=== PATIENT | female | born 1975 | race Caucasian/White ===

== ENCOUNTER 2017-10-08 02:59 | Emergency (ER) | payer MEDICAID ==
[2017-10-08 03:45] LABS: BASOPHILS 0.2 % (0-2); EOSINOPHILS 0.8 % (0-7); HEMATOCRIT 38.9 % (36.0-48.0); HEMOGLOBIN 12.6 g/dL (12-16); IMMATURE GRANULOCYTES 0.3 % (0-5); LYMPHOCYTES 14.8 % (15-50); MCH 29.3 pg (26.0-34.0); MCHC 32.4 g/dL (31.0-37.0); MCV 90.5 fL (80.0-100.0); MEAN PLATELET VOLUME 10.3 fL (7.4-10.4); MONOCYTES 5.7 % (2-11); NEUTROPHILS 78.2 % (40-80); PLATELET COUNT 402 10x3/uL (130-400); RDW 14.7 % (11.5-14.5); WBC 14.1 10x3/uL (4.8-10.8)
[2017-10-08 03:49] LABS: APPEARANCE HAZY (CLEAR); BILIRUBIN NEGATIVE (NEGATIVE); COLOR YELLOW (YELLOW); GLUCOSE NEGATIVE (NEGATIVE); KETONE NEGATIVE (NEGATIVE); NITRITE NEGATIVE (NEGATIVE); PROTEIN TRACE mg/dL (NEGATIVE); RED CELLS - URINE 0-5 /hpf (0-5); SPECIFIC GRAVITY 1.015 (1.005-1.020); UROBILINOGEN NORMAL (NORMAL)
[2017-10-08 03:50] LABS: BACTERIA FEW /hpf (NONE SEEN); EPITHELIAL CELLS RARE /hpf (0-5)
[2017-10-08 03:59] LABS: HCG SERUM NEGATIVE (NEGATIVE)
[2017-10-08 04:03] LABS: ALBUMIN 3.3 g/dL (3.4-5.0); ALKALINE PHOSPHATASE 73 U/L (46-116); ALT (SGPT) 15 U/L (10-68); AMYLASE - SERUM 54 U/L (25-115); BILIRUBIN - TOTAL 0.24 mg/dL (0.2-1.3); CALC OSMOLALITY 279 mosm/kg (275-300); CARBON DIOXIDE 31.3 mmol/L (21.0-32.0); CHLORIDE - SERUM 101 mmol/L (98-107); CREATININE - SERUM 0.7 mg/dL (0.6-1.3); GLUCOSE 114 mg/dL (74-106); LIPASE 74 U/L (73-393); POTASSIUM - SERUM 4.2 mmol/L (3.5-5.1); PROTEIN - SERUM 7.1 g/dL (6.4-8.2); SODIUM 139 mmol/L (136-145); UREA NITROGEN 14 mg/dL (7-18); eGFR NON AFRICAN AMERICAN > 90 mL/min (90-120)
[2017-10-08 04:26] LABS: UDS - AMPHET POSITIVE QUAL (NEGATIVE); UDS - BARB NEGATIVE QUAL (NEGATIVE); UDS - BENZO NEGATIVE QUAL (NEGATIVE); UDS - COCAINE NEGATIVE QUAL (NEGATIVE); UDS - OPIATE NEGATIVE QUAL (NEGATIVE); UDS - PCP NEGATIVE QUAL (NEGATIVE); UDS - THC NEGATIVE QUAL (NEGATIVE)
== END 2017-10-08 05:06 | disposition home or self-care (01) ==
LOC: D.ER 02:59
PROVIDERS: Emergency Medicine
DX: N39.0 Urinary tract infection, site not specified (principal); N73.0 Acute parametritis and pelvic cellulitis; F17.200 Nicotine dependence, unspecified, uncomplicated

== ENCOUNTER 2017-12-24 04:17 | Emergency (ER) | payer MEDICAID ==
[~2017-12-24] VITALS: Ht 170.2 cm; Wt 61.4 kg
[2017-12-24 04:25] VITALS: Ht 170.2 cm; Wt 61.4 kg
[2017-12-24 05:11] LABS: UDS - AMPHET POSITIVE QUAL (NEGATIVE); UDS - BARB NEGATIVE QUAL (NEGATIVE); UDS - BENZO NEGATIVE QUAL (NEGATIVE); UDS - COCAINE NEGATIVE QUAL (NEGATIVE); UDS - OPIATE NEGATIVE QUAL (NEGATIVE); UDS - PCP NEGATIVE QUAL (NEGATIVE); UDS - THC POSITIVE QUAL (NEGATIVE)
[2017-12-24 05:18] LABS: BASOPHILS 0.3 % (0-2); EOSINOPHILS 1.1 % (0-7); HEMATOCRIT 38.2 % (36.0-48.0); HEMOGLOBIN 12.5 g/dL (12-16); IMMATURE GRANULOCYTES 0.3 % (0-5); MCH 29.2 pg (26.0-34.0); MCHC 32.7 g/dL (31.0-37.0); MCV 89.3 fL (80.0-100.0); MEAN PLATELET VOLUME 10.2 fL (7.4-10.4); MONOCYTES 7.7 % (2-11); NEUTROPHILS 72.6 % (40-80); PLATELET COUNT 384 10x3/uL (130-400); RBC 4.28 10x6/uL (4.00-5.40); RDW 16.1 % (11.5-14.5); WBC 15.2 10x3/uL (4.8-10.8)
[2017-12-24 05:19] LABS: ALBUMIN 3.4 g/dL (3.4-5.0); ALKALINE PHOSPHATASE 87 U/L (46-116); ALT (SGPT) 22 U/L (10-68); AMYLASE - SERUM 60 U/L (25-115); APPEARANCE CLOUDY (CLEAR); BILIRUBIN - TOTAL 0.28 mg/dL (0.2-1.3); CALC OSMOLALITY 279 mosm/kg (275-300); CALCIUM 9.1 mg/dL (8.5-10.1); CARBON DIOXIDE 30.4 mmol/L (21.0-32.0); CHLORIDE - SERUM 104 mmol/L (98-107); COLOR YELLOW (YELLOW); CREATININE - SERUM 0.8 mg/dL (0.6-1.3); GLUCOSE 93 mg/dL (74-106); LIPASE 81 U/L (73-393); POTASSIUM - SERUM 4.1 mmol/L (3.5-5.1); PROTEIN - SERUM 7.2 g/dL (6.4-8.2); SODIUM 139 mmol/L (136-145); SPECIFIC GRAVITY 1.015 (1.005-1.020); UREA NITROGEN 18 mg/dL (7-18); eGFR NON AFRICAN AMERICAN 83 mL/min (90-120)
[2017-12-24 05:20] LABS: BACTERIA MODERATE /hpf (NONE SEEN); BILIRUBIN NEGATIVE (NEGATIVE); EPITHELIAL CELLS 0-5 /hpf (0-5); GLUCOSE NEGATIVE (NEGATIVE); KETONE NEGATIVE (NEGATIVE); NITRITE NEGATIVE (NEGATIVE); PROTEIN 1+ mg/dL (NEGATIVE); UROBILINOGEN NORMAL (NORMAL); WHITE CELLS - URINE >50 /hpf (0-5)
[2017-12-24 05:22] LABS: HCG SERUM NEGATIVE (NEGATIVE)
[2017-12-24] MEDS ORDERED: ZOFRAN ODT4 MG/UDTAB PO (05:37)
[2017-12-24] MEDS ORDERED: KEFLEX500 MG PO (05:37)
[2017-12-24] MEDS ORDERED: MACROBID100 MG PO (05:37)
[2017-12-24 06:29] VITALS: BP 132/78
== END 2017-12-24 06:29 | disposition home or self-care (01) ==
LOC: D.ER 04:17 → EDBD 04:17 → D.ER 06:29
PROVIDERS: Family Medicine
DX: N39.0 Urinary tract infection, site not specified (principal); F15.10 Other stimulant abuse, uncomplicated; R11.2 Nausea with vomiting, unspecified; R30.0 Dysuria

== ENCOUNTER 2018-08-15 22:20 | Emergency (ER) | payer MEDICAID ==
[~2018-08-15] VITALS: Ht 170.2 cm; Wt 54.5 kg
[~2018-08-15 22:20] MED LIST: KEFLEX500 MG PO; MACROBID100 MG PO; ZOFRAN ODT4 MG/UDTAB PO
[2018-08-15 22:25] VITALS: Ht 170.2 cm; Wt 54.5 kg
[2018-08-15 22:54] LABS: APPEARANCE CLEAR (CLEAR); COLOR YELLOW (YELLOW); NITRITE NEGATIVE (NEGATIVE); SPECIFIC GRAVITY 1.025 (1.005-1.020)
[2018-08-15 22:55] LABS: BASOPHILS 0.3 % (0-2); HEMATOCRIT 39.3 % (36.0-48.0); HEMOGLOBIN 12.8 g/dL (12-16); IMMATURE GRANULOCYTES 0.3 % (0-5); LYMPHOCYTES 15.4 % (15-50); MCH 28.6 pg (26.0-34.0); MCHC 32.6 g/dL (31.0-37.0); MCV 87.9 fL (80.0-100.0); MONOCYTES 6.1 % (2-11); NEUTROPHILS 76.9 % (40-80); RBC 4.47 10x6/uL (4.00-5.40); RDW 13.7 % (11.5-14.5); WBC 14.3 10x3/uL (4.8-10.8)
[2018-08-15 22:55] LABS: BILIRUBIN NEGATIVE (NEGATIVE); GLUCOSE NEGATIVE (NEGATIVE); KETONE NEGATIVE (NEGATIVE); PROTEIN TRACE mg/dL (NEGATIVE); UROBILINOGEN NORMAL (NORMAL)
[2018-08-15 22:56] LABS: BACTERIA FEW /hpf (NONE SEEN); EPITHELIAL CELLS 0-5 /hpf (0-5); RED CELLS - URINE 0-5 /hpf (0-5); WHITE CELLS - URINE 0-5 /hpf (0-5)
[2018-08-15 23:01] LABS: HCG URINE NEGATIVE (NEGATIVE)
[2018-08-15 23:02] LABS: PLATELET COUNT 531 10x3/uL (130-400)
[2018-08-15 23:03] LABS: UDS - AMPHET POSITIVE QUAL (NEGATIVE); UDS - BARB NEGATIVE QUAL (NEGATIVE); UDS - BENZO NEGATIVE QUAL (NEGATIVE); UDS - COCAINE NEGATIVE QUAL (NEGATIVE); UDS - OPIATE NEGATIVE QUAL (NEGATIVE); UDS - PCP NEGATIVE QUAL (NEGATIVE); UDS - THC NEGATIVE QUAL (NEGATIVE)
[2018-08-15 23:09] LABS: ALBUMIN 3.3 g/dL (3.4-5.0); ALKALINE PHOSPHATASE 104 U/L (46-116); ALT (SGPT) 21 U/L (10-68); BILIRUBIN - TOTAL 0.05 mg/dL (0.2-1.3); CALC OSMOLALITY 279 mosm/kg (275-300); CALCIUM 9.1 mg/dL (8.5-10.1); CARBON DIOXIDE 34.4 mmol/L (21.0-32.0); CHLORIDE - SERUM 100 mmol/L (98-107); CREATININE - SERUM 0.6 mg/dL (0.6-1.3); GLUCOSE 111 mg/dL (74-106); POTASSIUM - SERUM 3.7 mmol/L (3.5-5.1); PROTEIN - SERUM 7.6 g/dL (6.4-8.2); SODIUM 140 mmol/L (136-145); UREA NITROGEN 13 mg/dL (7-18); eGFR NON AFRICAN AMERICAN > 90 mL/min (90-120)
[2018-08-15 23:13] LABS: AMYLASE - SERUM 82 U/L (25-115); LIPASE 147 U/L (73-393)
[2018-08-16] MEDS ORDERED: PROTONIX40 MG PO (01:09)
[2018-08-16 02:18] LABS: CKMB 1.2 U/L (0.0-3.6); CREATINE KINASE 32 UL (21-215); TROPONIN-I 0.046 ng/mL (0.000-0.060)
[2018-08-16 04:02] VITALS: BP 136/78
== END 2018-08-16 04:03 | disposition home or self-care (01) ==
LOC: D.ER 22:20
PROVIDERS: Family Medicine
DX: R10.84 Generalized abdominal pain (principal); K29.70 Gastritis, unspecified, without bleeding; I10 Essential (primary) hypertension; F19.10 Other psychoactive substance abuse, uncomplicated; R11.10 Vomiting, unspecified

== ENCOUNTER 2019-03-09 19:48 | Emergency (ER) | payer MEDICAID ==
[~2019-03-09] VITALS: Ht 170.2 cm; Wt 56.8 kg
[~2019-03-09 19:48] MED LIST changes: +PROTONIX40 MG PO
[2019-03-09 19:52] VITALS: Ht 170.2 cm; Wt 56.8 kg
[2019-03-09 20:27] LABS: BASOPHILS 0.3 % (0-2); EOSINOPHILS 1.1 % (0-7); HEMATOCRIT 34.2 % (36.0-48.0); HEMOGLOBIN 11.1 g/dL (12-16); IMMATURE GRANULOCYTES 0.3 % (0-5); LYMPHOCYTES 14.3 % (15-50); MCH 24.8 pg (26.0-34.0); MCHC 32.5 g/dL (31.0-37.0); MCV 76.3 fL (80.0-100.0); MONOCYTES 6.4 % (2-11); NEUTROPHILS 77.6 % (40-80); PLATELET COUNT 509 10x3/uL (130-400); RBC 4.48 10x6/uL (4.00-5.40); RDW 16.2 % (11.5-14.5); WBC 15.1 10x3/uL (4.8-10.8)
[2019-03-09 20:37] LABS: ALBUMIN 2.9 g/dL (3.4-5.0); ALKALINE PHOSPHATASE 99 U/L (46-116); ALT (SGPT) 20 U/L (10-68); AMYLASE - SERUM 47 U/L (25-115); BILIRUBIN - TOTAL 0.27 mg/dL (0.2-1.3); CALC OSMOLALITY 279 mosm/kg (275-300); CALCIUM 8.5 mg/dL (8.5-10.1); CHLORIDE - SERUM 101 mmol/L (98-107); CREATININE - SERUM 0.4 mg/dL (0.6-1.3); GLUCOSE 128 mg/dL (74-106); LIPASE 106 U/L (73-393); PROTEIN - SERUM 6.4 g/dL (6.4-8.2); SODIUM 139 mmol/L (136-145); TROPONIN-I < 0.017 ng/mL (0.000-0.060); UREA NITROGEN 12 mg/dL (7-18); eGFR NON AFRICAN AMERICAN > 90 mL/min (90-120)
[2019-03-09 20:39] LABS: POTASSIUM - SERUM 2.8 mmol/L (3.5-5.1)
[2019-03-09 21:17] LABS: APPEARANCE HAZY (CLEAR); BILIRUBIN NEGATIVE (NEGATIVE); COLOR YELLOW (YELLOW); GLUCOSE NEGATIVE (NEGATIVE); KETONE NEGATIVE (NEGATIVE); NITRITE NEGATIVE (NEGATIVE); PROTEIN TRACE mg/dL (NEGATIVE); SPECIFIC GRAVITY 1.015 (1.005-1.020); UROBILINOGEN NORMAL (NORMAL)
[2019-03-09 21:19] LABS: EPITHELIAL CELLS 0-5 /hpf (0-5); RED CELLS - URINE 0-5 /hpf (0-5)
[2019-03-09 21:20] LABS: BACTERIA FEW /hpf (NEGATIVE); HCG URINE NEGATIVE (NEGATIVE)
[2019-03-10] MEDS ORDERED: ULTRAM50 MG PO (01:09)
[2019-03-10] MEDS ORDERED: OMNICEF300 MG PO (01:09)
[2019-03-10] MEDS ORDERED: ZOFRAN ODT4 MG/UDTAB PO (01:13)
[2019-03-10 01:41] VITALS: BP 138/84
== END 2019-03-10 01:40 | disposition home or self-care (01) ==
LOC: D.ER 19:48
PROVIDERS: Family Medicine
DX: N39.0 Urinary tract infection, site not specified (principal); E87.6 Hypokalemia; M94.0 Chondrocostal junction syndrome [Tietze]

== ENCOUNTER 2019-03-10 03:40 | Emergency (ER) | payer MEDICAID ==
[~2019-03-10] VITALS: Ht 170.2 cm; Wt 59.1 kg
[~2019-03-10 03:40] MED LIST changes: +OMNICEF300 MG PO; +ULTRAM50 MG PO
[2019-03-10 03:46] VITALS: Ht 170.2 cm; Wt 59.1 kg
[2019-03-10 05:46] VITALS: BP 150/72
== END 2019-03-10 05:22 | disposition home or self-care (01) ==
LOC: D.ER 03:40
DX: N39.0 Urinary tract infection, site not specified (principal)

== ENCOUNTER 2019-04-07 17:32 | Emergency (ER) | payer MEDICAID ==
[~2019-04-07] VITALS: Ht 175.3 cm; Wt 59.1 kg
[2019-04-07 17:41] VITALS: Ht 175.3 cm; Wt 59.1 kg
[2019-04-07 19:33] LABS: BASOPHILS 0.1 % (0-2); EOSINOPHILS 0.1 % (0-7); HEMATOCRIT 34.5 % (36.0-48.0); HEMOGLOBIN 10.6 g/dL (12-16); IMMATURE GRANULOCYTES 0.4 % (0-5); LYMPHOCYTES 8.4 % (15-50); MCH 24.8 pg (26.0-34.0); MCHC 30.7 g/dL (31.0-37.0); MCV 80.6 fL (80.0-100.0); MEAN PLATELET VOLUME 9.6 fL (7.4-10.4); PLATELET COUNT 548 10x3/uL (130-400); RBC 4.28 10x6/uL (4.00-5.40); RDW 18.9 % (11.5-14.5); WBC 13.8 10x3/uL (4.8-10.8)
[2019-04-07 20:05] LABS: ALBUMIN 2.6 g/dL (3.4-5.0); ALKALINE PHOSPHATASE 110 U/L (46-116); ALT (SGPT) 17 U/L (10-68); AMYLASE - SERUM 52 U/L (25-115); BILIRUBIN - TOTAL 0.27 mg/dL (0.2-1.3); CALC OSMOLALITY 272 mosm/kg (275-300); CALCIUM 8.6 mg/dL (8.5-10.1); CARBON DIOXIDE 29.8 mmol/L (21.0-32.0); CHLORIDE - SERUM 98 mmol/L (98-107); CKMB 1.1 U/L (0.0-3.6); CREATINE KINASE 31 UL (21-215); CREATININE - SERUM 0.6 mg/dL (0.6-1.3); GLUCOSE 108 mg/dL (74-106); LIPASE 64 U/L (73-393); MAGNESIUM - SERUM 1.4 mg/dL (1.8-2.4); PROTEIN - SERUM 6.6 g/dL (6.4-8.2); SODIUM 136 mmol/L (136-145); UREA NITROGEN 12 mg/dL (7-18); eGFR NON AFRICAN AMERICAN > 90 mL/min (90-120)
[2019-04-07 20:38] LABS: POTASSIUM - SERUM 2.8 mmol/L (3.5-5.1); TROPONIN-I < 0.017 ng/mL (0.000-0.060)
[2019-04-07 20:59] LABS: UDS - AMPHET POSITIVE QUAL (NEGATIVE); UDS - BARB NEGATIVE QUAL (NEGATIVE); UDS - BENZO NEGATIVE QUAL (NEGATIVE); UDS - COCAINE NEGATIVE QUAL (NEGATIVE); UDS - OPIATE NEGATIVE QUAL (NEGATIVE); UDS - PCP NEGATIVE QUAL (NEGATIVE); UDS - THC POSITIVE QUAL (NEGATIVE)
[2019-04-07 21:04] LABS: APPEARANCE CLEAR (CLEAR); BILIRUBIN NEGATIVE (NEGATIVE); COLOR STRAW (YELLOW); GLUCOSE NEGATIVE (NEGATIVE); KETONE NEGATIVE (NEGATIVE); NITRITE NEGATIVE (NEGATIVE); PROTEIN NEGATIVE (NEGATIVE); SPECIFIC GRAVITY 1.015 (1.005-1.020); UROBILINOGEN NORMAL (NORMAL)
--- NOTE | 2019-04-07 23:31 | NUR ---
DR ANGELA NOTIFIED AND REVIEWED PATIENT'S BEHAVIOR AND ASSESSMENT RESULTS. PT IS A LOW RISK PER DR ANGELA. PATIENT REFUSED RESOURCE INFORMATION RELATING SHE IS NOT SUICIDAL SHE JUST WANTS HELP WITH HER PAIN. NO FURTHER ORDERS AT THIS TIME.
[2019-04-07 23:35] VITALS: BP 147/90
== END 2019-04-07 23:35 | disposition home or self-care (01) ==
LOC: D.ER 17:32
PROVIDERS: Family Medicine
DX: R10.9 Unspecified abdominal pain (principal); I47.1 Supraventricular tachycardia; F19.10 Other psychoactive substance abuse, uncomplicated

== ENCOUNTER 2019-05-05 02:56 | Inpatient (IN) | payer MEDICAID ==
[~2019-05-05] VITALS: Ht 175.3 cm; Wt 40.8 kg
[2019-05-05 03:13] LABS: BASOPHILS 0.1 % (0-2); EOSINOPHILS 0 % (0-7); HEMATOCRIT 37.9 % (36.0-48.0); HEMOGLOBIN 11.9 g/dL (12-16); IMMATURE GRANULOCYTES 0.6 % (0-5); LYMPHOCYTES 4.2 % (15-50); MCH 25.9 pg (26.0-34.0); MCHC 31.4 g/dL (31.0-37.0); MCV 82.6 fL (80.0-100.0); MEAN PLATELET VOLUME 10.1 fL (7.4-10.4); MONOCYTES 2.2 % (2-11); NEUTROPHILS 92.9 % (40-80); PLATELET COUNT 487 10x3/uL (130-400); RBC 4.59 10x6/uL (4.00-5.40); RDW 19.1 % (11.5-14.5); WBC 17.9 10x3/uL (4.8-10.8)
[2019-05-05 03:24] LABS: CALC OSMOLALITY 288 mosm/kg (275-300); CARBON DIOXIDE 30.2 mmol/L (21.0-32.0); CHLORIDE - SERUM 99 mmol/L (98-107); CREATININE - SERUM 0.8 mg/dL (0.6-1.3); GLUCOSE 148 mg/dL (74-106); POTASSIUM - SERUM 3.6 mmol/L (3.5-5.1); SODIUM 140 mmol/L (136-145); UREA NITROGEN 31 mg/dL (7-18); eGFR NON AFRICAN AMERICAN 82 mL/min (90-120)
[2019-05-05 03:34] LABS: APTT 30.2 SECONDS (22.8-39.4); INR 1.5 (0.85-1.17); PROTIME 17.6 SECONDS (11.6-15.0)
[2019-05-05 03:47] LABS: ALBUMIN 2.8 g/dL (3.4-5.0); ALKALINE PHOSPHATASE 128 U/L (46-116); ALT (SGPT) 37 U/L (10-68); AMYLASE - SERUM 57 U/L (25-115); BILIRUBIN - TOTAL 0.38 mg/dL (0.2-1.3); LIPASE 69 U/L (73-393); PROTEIN - SERUM 7.1 g/dL (6.4-8.2)
[2019-05-05 03:52] LABS: TROPONIN-I 0.105 ng/mL (0.000-0.060)
[2019-05-05 04:04] LABS: APPEARANCE CLEAR (CLEAR); BILIRUBIN NEGATIVE (NEGATIVE); COLOR YELLOW (YELLOW); GLUCOSE NEGATIVE (NEGATIVE); KETONE NEGATIVE (NEGATIVE); NITRITE NEGATIVE (NEGATIVE); PROTEIN 1+ mg/dL (NEGATIVE); SPECIFIC GRAVITY 1.025 (1.005-1.020); UROBILINOGEN NORMAL (NORMAL)
[2019-05-05 04:10] LABS: BACTERIA FEW /hpf (NEGATIVE); EPITHELIAL CELLS 0-5 /hpf (0-5); MUCUS >1+ /lpf (NONE SEEN); RED CELLS - URINE 0-5 /hpf (0-5); WHITE CELLS - URINE 0-5 /hpf (NEGATIVE)
[2019-05-05 06:02] VITALS: BMI 13.3
--- NOTE | 2019-05-05 06:12 | NUR ---
ADMISION VITAL SIGNS: 02 98, BP 109/85, HR 60, RR 12, TEMP 97.7.
--- NOTE | 2019-05-05 06:15 | NUR ---
RECEIVED PATIENT TO ROOM 2112 VIA STRETCHER. PATIENT IS GROSSLY EMACIATED AND LETHARGIC. WARM BLANKET GIVEN. MED REC, QUICK START, ADULT HX COMPLETE. 2 IV'S TO LT AC 1 WITH LR BOLUS, 1 WITH VANC. PATIENT DENIES NEEDS AT THIS TIME. CL IN REACH, BED LOCKED AND LOWERED. WILL CTM.
[2019-05-05 08:00] VITALS: BP 111/75
--- NOTE | 2019-05-05 08:01 | NUR ---
PT AWAKE AND ORIENTED, NO COMPLAINTS OR CONCERNS AT THIS TIME. CL IN REACH, SRX2. NO FAMILY PRESENT AT BEDSIDE.
[2019-05-05 10:55] VITALS: BP 162/92
[2019-05-05 11:13] LABS: CKMB 2.1 U/L (0.0-3.6); CREATINE KINASE 111 UL (21-215)
[2019-05-05 11:14] LABS: TROPONIN-I 0.102 ng/mL (0.000-0.060)
--- NOTE | 2019-05-05 12:50 | NUR ---
I have reviewed this patient and I concur with the Shift Assessment completed by the Licensed Practical Nurse today this shift.
[2019-05-05 13:19] VITALS: Ht 175.3 cm; Wt 40.8 kg
[2019-05-05 15:14] VITALS: BP 160/83
[2019-05-05 16:57] LABS: CKMB 1.2 U/L (0.0-3.6); CREATINE KINASE 118 UL (21-215)
[2019-05-05 17:05] LABS: TROPONIN-I 0.081 ng/mL (0.000-0.060)
--- NOTE | 2019-05-05 18:32 | NUR ---
TECH REPORTS PT HAVING DIAHREAH WITH LOTS OF DARK BLOOD MIXED IN. KT FALL IS AWARE. PT IS ALSO ABLE TO AMBULATE WITH ASSIST. CL IN REACH, SRX2.
--- NOTE | 2019-05-05 19:10 | NUR ---
PT CARE ASSUMED. PT IN BED LAYING ON HER LEFT SIDE WITH HEAD ON BEDSIDE TABLE. DENIES NEEDS. RR EVEN AND UNLABORED ON RA. NO S/S OF DISTRESS NOTED AT THIS TIME. PIV TO LEFT AC AND LEFT FA D/C WITH CATHETER TIP INTACT. 20G PIC STARTED TO RIGHT FA X1 ATTEMPT. PT TOLERATED WELL. NO FURTHER NEEDS EXPRESSED AT THIS TIME. FALL PRECAUTIONS IN PLACE. CALL LIGHT IN REACH. WILL CTM.
[2019-05-05 20:30] VITALS: BP 134/91
[2019-05-05 22:58] LABS: CKMB 0.9 U/L (0.0-3.6); CREATINE KINASE 129 UL (21-215); TROPONIN-I 0.062 ng/mL (0.000-0.060)
[2019-05-06 00:15] VITALS: BP 147/93
[2019-05-06 04:18] VITALS: BP 147/98
[2019-05-06 06:00] LABS: ALKALINE PHOSPHATASE 95 U/L (46-116); ALT (SGPT) 29 U/L (10-68); CARBON DIOXIDE 26.2 mmol/L (21.0-32.0); CHLORIDE - SERUM 107 mmol/L (98-107); CREATININE - SERUM 0.6 mg/dL (0.6-1.3); PROTEIN - SERUM 5.4 g/dL (6.4-8.2); SODIUM 140 mmol/L (136-145); UREA NITROGEN 33 mg/dL (7-18); eGFR NON AFRICAN AMERICAN > 90 mL/min (90-120)
[2019-05-06 06:02] LABS: CALC OSMOLALITY 285 mosm/kg (275-300); GLUCOSE 99 mg/dL (74-106)
[2019-05-06 06:03] LABS: POTASSIUM - SERUM 2.9 mmol/L (3.5-5.1)
[2019-05-06 06:12] LABS: HEMATOCRIT 30.5 % (36.0-48.0); HEMOGLOBIN 9.6 g/dL (12-16); MCH 25.7 pg (26.0-34.0); MCHC 31.5 g/dL (31.0-37.0); MCV 81.6 fL (80.0-100.0); MEAN PLATELET VOLUME 10.6 fL (7.4-10.4); PLATELET COUNT 398 10x3/uL (130-400); RBC 3.74 10x6/uL (4.00-5.40); RDW 19.1 % (11.5-14.5); WBC 26.6 10x3/uL (4.8-10.8)
--- NOTE | 2019-05-06 07:06 | NUR ---
PT AWAKE AND ORIENTED WHEN I ENTERED ROOM. REQUESTED I ORDER HER CREAM OF WHEAT OR GRITS FOR BREAKFAST (ORDERED). NO OTHER COMPLAINTS/CONCERNS, ALL QUESTIONS ANSWERED TO THE BEST OF MY ABILITY. CL IN REACH, SRX2.
[2019-05-06 07:12] LABS: HEPATITIS C ANTIBODY 0.1 (0.0-0.9)
[2019-05-06 08:08] LABS: HYPOCHROMASIA 1+; LYMPHOCYTES 11 % (15-50); MONOCYTES 9 % (2-11); NEUTROPHILS 71 % (40-80); PLATELET ESTIMATE NORMAL
[2019-05-06 09:03] LABS: INR 1.94 (0.85-1.17); PROTIME 21.5 SECONDS (11.6-15.0)
[2019-05-06 09:10] VITALS: BP 132/79
--- NOTE | 2019-05-06 10:36 | NUR ---
[facility] 16F [facility] PER [facility] NURSING PROTOCOL. PT HAD A SHOWER, ABLE TO WALK WITH MINIMAL ASIST. NO COMPLAINTS/CONCERNS OR QUESTIONS AT THIS TIME. OBNTAINED ALL ORDERED SPECIMEN. CL IN REACH, SRX2. PT IS WAITING FOR CT SCAN, DRANK ALL THE CONTRAST.
[2019-05-06 10:43] LABS: UDS - AMPHET NEGATIVE QUAL (NEGATIVE); UDS - BARB NEGATIVE QUAL (NEGATIVE); UDS - BENZO NEGATIVE QUAL (NEGATIVE); UDS - COCAINE NEGATIVE QUAL (NEGATIVE); UDS - OPIATE NEGATIVE QUAL (NEGATIVE); UDS - PCP NEGATIVE QUAL (NEGATIVE); UDS - THC NEGATIVE QUAL (NEGATIVE)
--- NOTE | 2019-05-06 10:56 | NUR ---
PT TAKEN BY WHEELCHAIR TO MEDICAL IMAGING,.
[2019-05-06 12:00] VITALS: BP 150/62
--- NOTE | 2019-05-06 14:19 | NUR ---
SPOKE TO DR BUSCH ABOUT, EXPLAINED CONCERNS OVER STOOL AND OTHER COMORBIDITIES. DR. BUSCH THINKS IT WOULD BE BEST TO TRANSFER PT TO HIGHER LEVEL OF CARE AND TO A FACILITY WITH GI COVERAGE. SPOKE TO CM, CALLED TRANSFER FACILITY. INFORMED PT
[2019-05-06 16:00] VITALS: BP 145/88
--- NOTE | 2019-05-06 17:00 | NUR ---
PT ESCORTED OUT VIA AMBULANCE STRETCHER, ON WAY TO [facility]. CALLED RPEORT TO [facility], LET HER KNOW AMBULANCE WAS HEADED THEIR WAY.
--- NOTE | 2019-05-08 09:19 | MORECARE ---
CASE MANAGEMENT DISCHARGE SUMMARY PATIENT: FRANCIS BURLESON UNIT: [id number] ADM DATE: 05/05/19 AGE: 43 : [birth year] SEX: F ROOM/BED: D.[facility]3 AUTHOR: ASTER HASSAN PHYSICIAN: REFERRING PHYSICIAN: ESTHER PAULA MD DATE OF SERVICE: 05/08/19 Discharge Plan Patient Name: FRANCIS BURLESON Facility: [facility]:[place] : 1975 Planned Disposition: Acute Care Hospital Anticipated Discharge Date: 05/06/19 Discharge Date: 05/06/2019 Expected LOS: 1 Initial Reviewer: [email or web address] Initial Review Date: 05/08/2019 Generated: 05/08/19 10:19 am Patient Name: FRANCIS BURLESON Page [id number] at 0919 All edits/amendments must be made on the electronic document DICTATION DATE: 05/08/19918 TIMBER SIZER: KATHERINE 05/08/19918 RPT#: [id number] DC DATE:05/06/19 STATUS: DIS IN [facility] [address] [place] [address] END OF REPORT
--- NOTE | 2019-05-08 09:28 | EC ---
PATIENT:FRANCIS BURLESON DATE OF SERVICE: 05/05/19 SEX: F MEDICAL RECORD: [id number] DATE OF : [birth year] LOCATION:D. D.211 AGE OF PATIENT: 43 ADMISSION DATE: 05/05/19 REFERRING PHYSICIAN: INTERPRETING PHYSICIAN: PILY RODRIGUEZ MD ECHOCARDIOGRAM REPORT ECHO CHARGES 4 ECHO COMPLETE Date: 05/05/19 CLINICAL DIAGNOSIS: ASSESS FOR VEGATATION ECHOCARDIOGRAPHIC MEASUREMENTS (adult normal given) AC root (d.<3.7cm) cm LV Septum d (<1.2 cm> 1.2 cm Valve Excursion cm LV Septum (systole) 1.3 cm Left Atria (s.<4.0cm> 4.0 cm LVPW d(<1.2cm) 1.2 cm RV (d.<2.3cm) 2.4 cm LVPW (sytole) 1.3 cm LV diastole(<5.6CM) 4.9 cm MV E-F(>70mm/sec) cm LV systole 4.4 cm LVOT Diameter 2.2 cm MV exc.(>10mm) cm Est.ejection fraction (50-75%) % DOPPLER: LVIT cm/sec A 101 cm/sec E 37.0 cm/sec LA cm/sec RVSP 27 mmHg LVOT 75 cm/sec AOP1/2T m/s Asc. Ao 177 cm/sec RVOT cm/sec RA cm/sec PA cm/sec AV Gradient Peak 12.49mmHg AV Mean 7.76 mmHg AV Area 1.4 cm MV Gradient Peak 5.05 mmHg MV Mean 1.38 mmHg MV Area cm COMMENTS: Cab Supervisor: Julia ODELL Locomotive Engineer Diesel: 1 Dr. Rodriguez TAPE# PACS Pericardial Effusion Y DATE OF SERVICE: FINDINGS: 1. Left ventricular chamber size is dilated. Left ventricular systolic function is markedly reduced at 15% to 20%. 2. Left atrium is enlarged at 4.0 cm. Right atrium and right ventricular chamber sizes are within normal limits. 3. Valvular structures have normal structure and motion. 4. Doppler interrogation reveals mild aortic insufficiency, mild mitral regurgitation, mild tricuspid regurgitation. No other valvular insufficiency or ECHOCARDIOGRAM REPORT [id number] FRANCIS BURLESON stenosis. 5. No evidence of pericardial effusion or left ventricular thrombus. 6. Calcified area of the mitral valve, but this does not appear to be endocarditis. TRANSINT:[id number] Voice Confirmation ID: [id number] DOCUMENT ID: [id number] PILY RODRIGUEZ MD at 0928 CC: [id number] DICTATION DATE: 05/06/19 1100 FENCE SUPERVISOR: 05/06/19 1109 DIS IN 05/06/19 [facility] [address] [place] [address]
== END 2019-05-06 17:01 | disposition short-term general hospital (02) | DRG 871 ==
LOC: D.ER 02:56 → D.M2 04:52
PROVIDERS: Family Medicine; ADMIT Internal Medicine Nephrology; ATTEND Internal Medicine Nephrology
DX: A41.9 Sepsis, unspecified organism (principal); E43 Unspecified severe protein-calorie malnutrition; N39.0 Urinary tract infection, site not specified; K92.2 Gastrointestinal hemorrhage, unspecified; N17.9 Acute kidney failure, unspecified; F17.213 Nicotine dependence, cigarettes, with withdrawal; Z68.1 Body mass index [BMI] 19.9 or less, adult; K59.00 Constipation, unspecified; F41.8 Other specified anxiety disorders; R79.89 Other specified abnormal findings of blood chemistry; F15.10 Other stimulant abuse, uncomplicated